=== PATIENT | female | born 1960 | race Caucasian/White ===

== ENCOUNTER 2024-09-16 12:34 | Emergency (ER) | payer MEDICARE ==
[2024-09-16] MEDS ORDERED: Lidocaine 1% 30 ML SDV INJECT ONE (13:10)
[2024-09-16] MEDS: Diphtheria,Pertussis(Acell),Tetanus Vaccine 0.5 ML Syringe IM ONE (13:44)
== END 2024-09-16 13:55 | disposition home or self-care (01) ==
LOC: VM.ED 12:34
DX: S61.012A Laceration without foreign body of left thumb without damage to nail, initial encounter (principal); W26.0XXA Contact with knife, initial encounter
CPT/HCPCS: 12001; 12002; 90471; 90715; 99282-25; 99283

== ENCOUNTER 2024-09-23 11:22 | Emergency (ER) | payer MEDICARE ==
[2024-09-23] MEDS: Lidocaine 1% 10 ML MDV INJECT ONE (12:17)
[2024-09-23] MEDS: Take Home: Acetaminophen/HYDROcodone 325-5 MG, 5 Tab Pack PO ONE (13:09)
[2024-09-23] MEDS: Take Home: Amoxicillin 875 MG Tab, 2 Tab Pack PO ONE (13:09)
== END 2024-09-23 13:15 | disposition home or self-care (01) ==
LOC: VM.ED 11:22
DX: S61.210A Laceration without foreign body of right index finger without damage to nail, initial encounter (principal); W22.8XXA Striking against or struck by other objects, initial encounter
CPT/HCPCS: 12001; 73140-F6; 99283; A9270-GY; J2003